=== PATIENT | male | born 1990 | race Caucasian/White ===

== ENCOUNTER 2021-05-17 10:42 | Outpatient (CLI) | payer OTHER, SELFPAY ==
[2021-05-17 11:52] LABS: NATERA MAILED SPECIMEN
== END 2021-05-17 23:59 | disposition home or self-care (01) ==
PROVIDERS: Referring Provider Obstetrics & Gynecology; Visit Provider Obstetrics & Gynecology
DX: Z31.440 Encounter of male for testing for genetic disease carrier status for procreative management (principal)
CPT/HCPCS: 36415